=== PATIENT | male | born 1975 | race Caucasian/White ===

== ENCOUNTER 2019-09-18 09:23 | Inpatient (IN) | payer OTHER ==
[~2019-09-18] VITALS: Ht 172.7 cm; Wt 84.8 kg
[2019-09-30] VITALS (11 sets, daily range): BP systolic 125–148; BP diastolic 78–99; PULSE 70–108; TEMP 97.5–99
[2019-09-30] MEDS ORDERED: CLARITIN 1010 MG/TAB PO (10:00)
[2019-09-30] MEDS ORDERED: GELATIN650 M2 PO (10:01)
[2019-09-30] MEDS ORDERED: PROBIOTIC FORMU1 CAP PO (10:01)
[2019-09-30] MEDS ORDERED: MEN'S ONE DAIL1 EACH PO (10:02)
[2019-09-30] MEDS ORDERED: KRILL OIL 5001 EACH PO (10:04)
[2019-09-30] MEDS ORDERED: ALEVE 220MG220 MG PO (10:04)
--- NOTE | 2019-09-30 17:12 | NUR ---
Patient assisted to standing position beside bed. Became a little bit dizzy and had some nausea. Assisted back into the bed. Symptoms subsided when returned to bed. Provided reassurance and encouragement. Perea patent draining clear yellow urine. ABD Lap sites with all edges well approximated, no drainage. Patient denies further needs.
--- NOTE | 2019-09-30 18:38 | NUR ---
Patient having some leaking at INT site on left forearm. IV site dc'd with catheter intact. Applied 2x2s to site and reinforced with coban. and sister in room with the patient. Patient denies needs.
--- NOTE | 2019-09-30 23:00 | NUR ---
Patient has been doing well. Minimal complaints of pain. No complaints of nausea. He stood up at the bedside but was not able to walk in the halls though. He is tolerating clear liquids without issues. No other changes at this time. Call light within reach.
[2019-10-01 00:19] VITALS: BP 131/70; PULSE 98; TEMP 98.7
[2019-10-01 04:37] VITALS: BP 117/78; PULSE 80; TEMP 98.4
--- NOTE | 2019-10-01 06:30 | NUR ---
Patient did well during the night. Minimal complaints of pain and no nausea. He stated he is feeling better this morning. Reminded him he needs to walk this morning in the hallways. No other changes at this time. Call light within reach.
--- NOTE | 2019-10-01 07:13 | NUR ---
Sitting up in bed eating clear liquid breakfast. Denies pain or nausea. Says that he started to pass gas this morning. Perea patent draining clear yellow urine. Lap sites x5 to abd with edges well approximated, held together with swiftset, no redness/drainage.swelling noted. Larger incision to right of umbilicus with edges well approximated, held together with swiftset, no redness/drainage/swelling noted. Patient denies needs at this time.
[2019-10-01 07:35] VITALS: BP 133/76; PULSE 83; TEMP 98.7
[2019-10-01 07:39] LABS: HEMATOCRIT 40.5 % (42.0-52.0)
[2019-10-01 07:59] LABS: CALCIUM 9.3 mg/dL (8.4-10.2); CREATININE, serum 1.45 (0.66-1.25); POTASSIUM 4.4 mmol/L (3.4-5.0)
--- NOTE | 2019-10-01 09:15 | NUR ---
Discussed with the patient removing xiong catheter. Explained process. Questions answered. Cath care performed prior to removing xiong. Deflated balloon, received 9ml saline. Catheter removed with all intact. Patient tolerates without difficulty. Provided a urinal and explained to use urinal each time so that we can measure how much he is having out. IV fluids discontinued at this time and site saline locked. Patient is sitting up in chair at this time. Family in room. Encouraged patient to ambulate in halls. Diet advanced to general. Dietary will bring breakfast tray to the patient. Patient denies further needs at this time.
--- NOTE | 2019-10-01 09:22 | NUR ---
Manager Of Internal met with patient and patient's Sofia (ph#[phone]) to discuss discharge planning. Patient lives in [place] with his and sees Captain [facility] for primary care on . . Patient also obtains his medications on . with no difficulties. Patient does not use any DME and is independent with [facility]. Patient does not have Advance Directives but reports at some point he and his will utilize [facility] to complete these. Patient plans to return home upon discharge and has transportation arrangements. No additional needs identified at this time.
--- NOTE | 2019-10-01 11:15 | NUR ---
Initial visit; Patient and his thanked [facility] for offering spiritual care, especially God's blessings.
[2019-10-01 12:00] VITALS: BP 156/89; PULSE 62; TEMP 98.4
--- NOTE | 2019-10-01 13:10 | NUR ---
Reviewed all discharge instructions with the patient. Questions answered. Patient signs discharge paperwork. Discharge packet provided to the patient. INT to eft hand dc'd with catheter intact. Applied 2x2 to site and reinforced with edward. Patient will call when his arrives to take him home.
--- NOTE | 2019-10-01 14:50 | NUR ---
here to drive patient home. Patient escorted to [facility] by JESUS Corral. Patient ambulates out.
== END 2019-10-01 14:50 | disposition home or self-care (01) | DRG 658 ==
LOC: INPTSU 09-30 08:31 → SURG 09-30 10:30
PROVIDERS: ADMIT Urology
PROC: 8E0W4CZ Robotic Assisted Procedure of Trunk Region, Percutaneous Endoscopic Approach (ICD-10-PCS; 2019-09-30)
PROC: 0TT04ZZ Resection of Right Kidney, Percutaneous Endoscopic Approach (ICD-10-PCS; principal; 2019-09-30 10:30)
DX: C64.1 Malignant neoplasm of right kidney, except renal pelvis (principal); M19.90 Unspecified osteoarthritis, unspecified site; Z98.52 Vasectomy status; Z89.021 Acquired absence of right finger(s)
CPT/HCPCS: A4314; A9284; J0360; J0690; J1100; J1170; J2250; J2405; J2704; J3010; J7030; J7120

== ENCOUNTER → 2020-01-21 | Outpatient (CLI) | payer OTHER ==
[~2020-01-21] MED LIST: ALEVE 220MG220 MG PO; CLARITIN 1010 MG/TAB PO; GELATIN650 M2 PO; KRILL OIL 5001 EACH PO; MEN'S ONE DAIL1 EACH PO; PROBIOTIC FORMU1 CAP PO
== END ==
LOC: MHCPAIN 13:35
DX: M47.817 Spondylosis without myelopathy or radiculopathy, lumbosacral region (principal); M54.5 Low back pain; M53.3 Sacrococcygeal disorders, not elsewhere classified; G89.29 Other chronic pain
CPT/HCPCS: G0463

== ENCOUNTER → 2020-02-05 | Outpatient (CLI) | payer OTHER | LOC: MHCPAIN 08:01 | DX: M47.817 Spondylosis without myelopathy or radiculopathy, lumbosacral region (principal); M54.5 Low back pain; G89.29 Other chronic pain ==

== ENCOUNTER → 2020-02-11 | Outpatient (CLI) | payer OTHER | LOC: MHCPAIN 13:28 | DX: M47.817 Spondylosis without myelopathy or radiculopathy, lumbosacral region (principal); M54.5 Low back pain; M53.3 Sacrococcygeal disorders, not elsewhere classified; G89.29 Other chronic pain | CPT/HCPCS: G0463 ==

== ENCOUNTER → 2020-02-19 | Outpatient (CLI) | payer OTHER | LOC: MHCPAIN 10:51 | DX: M47.817 Spondylosis without myelopathy or radiculopathy, lumbosacral region (principal); M54.5 Low back pain ==

== ENCOUNTER → 2020-02-23 | Outpatient (CLI) | payer OTHER | LOC: MHCPAIN 14:45 | DX: M47.817 Spondylosis without myelopathy or radiculopathy, lumbosacral region (principal); M54.5 Low back pain; M53.3 Sacrococcygeal disorders, not elsewhere classified; G89.29 Other chronic pain | CPT/HCPCS: G0463 ==

== ENCOUNTER → 2020-03-08 | Outpatient (CLI) | payer OTHER | LOC: MHCPAIN 13:28 | DX: M47.817 Spondylosis without myelopathy or radiculopathy, lumbosacral region (principal); M54.5 Low back pain | CPT/HCPCS: J2250; J3010 ==

== ENCOUNTER → 2020-04-07 | Outpatient (CLI) | payer OTHER | LOC: MHCPAIN 08:06 | DX: M47.817 Spondylosis without myelopathy or radiculopathy, lumbosacral region (principal); M54.5 Low back pain; G89.29 Other chronic pain; M53.3 Sacrococcygeal disorders, not elsewhere classified | CPT/HCPCS: G0463 ==

== ENCOUNTER → 2020-04-08 | Outpatient (CLI) | payer OTHER | LOC: MHCPAIN 14:17 | DX: M47.818 Spondylosis without myelopathy or radiculopathy, sacral and sacrococcygeal region (principal); M53.3 Sacrococcygeal disorders, not elsewhere classified | CPT/HCPCS: G0260; J1040; Q9967 ==

== ENCOUNTER → 2020-04-20 | Outpatient (CLI) | payer OTHER | LOC: MHCPAIN 10:52 | DX: M47.817 Spondylosis without myelopathy or radiculopathy, lumbosacral region (principal); M54.5 Low back pain; M53.3 Sacrococcygeal disorders, not elsewhere classified; G89.29 Other chronic pain | CPT/HCPCS: G0463 ==

== ENCOUNTER → 2020-05-24 | Outpatient (CLI) | payer OTHER ==
[~2020-05-24] VITALS: Ht 172.7 cm; Wt 83.3 kg
[~2020-05-24] MED LIST changes: +AMBIEN 5MG TABLE5 MG PO; +COLACE 100100 MG/CAP PO; +CRESTOR20 MG PO; +FLONASEALLERGY NS; +ONE-A-DAY ESSE1 EACH PO; +TRULICITY0.75 MG/0. SQ; +ZANAFLEX CAPSULE4 MG PO; +ZYRTEC 10MG10 MG PO
[2020-05-24 09:56] VITALS: BP 125/92; PULSE 83
[2020-05-24 10:50] VITALS: BP 130/91; PULSE 75
== END ==
LOC: COL.RAD 09:24
DX: E04.1 Nontoxic single thyroid nodule (principal)

== ENCOUNTER → 2020-08-02 | Outpatient (CLI) | payer OTHER | LOC: MHCPAIN 10:32 | DX: M47.817 Spondylosis without myelopathy or radiculopathy, lumbosacral region (principal); M54.5 Low back pain; M53.3 Sacrococcygeal disorders, not elsewhere classified; G89.29 Other chronic pain | CPT/HCPCS: G0463 ==